=== PATIENT | female | born 1995 | race Two or more races ===

== ENCOUNTER 2024-04-15 20:26 | Emergency (ER) | payer BC, MEDICAID ==
[2024-04-15] MEDS: Diphtheria,Pertussis(Acell),Tetanus Vaccine 0.5 ML Syringe IM ONE (21:19)
[2024-04-15] MEDS: Ibuprofen 600 MG Tab PO ONE (21:19)
== END 2024-04-15 22:03 | disposition home or self-care (01) ==
LOC: JP.ED 20:26
DX: S40.812A Abrasion of left upper arm, initial encounter (principal); V86.95XA Unspecified occupant of 3- or 4- wheeled all-terrain vehicle (ATV) injured in nontraffic accident, initial encounter
CPT/HCPCS: 73590; 90471; 90715; 99283; A9270